=== PATIENT | male | born 1940 | race Caucasian/White ===

== ENCOUNTER → 2018-03-23 | Outpatient (CLI) | payer MEDICARE, OTHER | END | disposition home or self-care (01) | LOC: CVU 07:59 | PROVIDERS: ATTEND Internal Medicine Cardiovascular Disease | DX: I65.23 Occlusion and stenosis of bilateral carotid arteries (principal); I70.0 Atherosclerosis of aorta; I70.203 Unspecified atherosclerosis of native arteries of extremities, bilateral legs; I07.1 Rheumatic tricuspid insufficiency; I48.0 Paroxysmal atrial fibrillation; J44.9 Chronic obstructive pulmonary disease, unspecified; I25.10 Atherosclerotic heart disease of native coronary artery without angina pectoris; F17.210 Nicotine dependence, cigarettes, uncomplicated | CPT/HCPCS: 0399T; 93306; 93880; 93978 ==

== ENCOUNTER 2019-07-09 14:25 | Outpatient (CLI) | payer MEDICARE, OTHER ==
[2019-07-09] MEDS ORDERED: ASPI81TA45 PO (15:25)
[2019-07-09] MEDS ORDERED: ALBU8.5H8 INH (15:25)
[2019-07-09] MEDS ORDERED: CALC-534 PO (15:25)
[2019-07-09] MEDS ORDERED: TRIAMCINOLONE ACET TP (15:25)
[2019-07-09] MEDS ORDERED: OXYGEN NS (15:25)
[2019-07-09] MEDS ORDERED: FLUT1BLS3 IH (15:25)
[2019-07-09] MEDS ORDERED: PRAV40TA PO (15:25)
[2019-07-09] MEDS ORDERED: MULT-516 PO (15:25)
[2019-07-09] MEDS ORDERED: CLEAR LUNGS PO (15:25)
[2019-07-09 15:59] LABS: BASOPHILS # (AUTO) 0.03 x10^3/uL (0-0.1); BASOPHILS % (AUTO) 0 % (0-1); EOSINOPHILS # (AUTO) 0.13 x10^3/uL (0-0.4); EOSINOPHILS % (AUTO) 2 % (1-7); LYMPHOCYTES # (AUTO) 2.15 x10^3/uL (1-3.4); LYMPHOCYTES % (AUTO) 34 % (22-44); MD NO; MEAN CORPUSCULAR HEMOGLOBIN 32.5 pg (27.0-34.8); MEAN CORPUSCULAR HGB CONC 32.8 g/dL (32.4-35.8); MEAN CORPUSCULAR VOLUME 99.3 fL (80-100); MEAN PLATELET VOLUME 7.4 fL (7.4-10.4); MONOCYTES # (AUTO) 0.59 x10^3/uL (0.2-0.8); MONOCYTES % (AUTO) 9 % (2-9); NEUTROPHILS # (AUTO) 3.41 x10^3/uL (1.8-6.8); NEUTROPHILS % (AUTO) 54 % (42-75); PLATELET COUNT 222 x10^3/uL (130-400); RED BLOOD COUNT 4.54 x10^6/uL (3.82-5.3)
[2019-07-09 16:09] LABS: ALANINE AMINOTRANSFERASE 34 U/L (12-78); ALBUMIN 3.9 g/dL (3.4-5.0); ANION GAP 5 mmol/L (5-15); CALCIUM 9.2 mg/dL (8.5-10.1); CHLORIDE 101 mmol/L (98-107); CREATININE 0.85 mg/dL (0.55-1.02)
[2019-07-09 16:11] LABS: ALKALINE PHOSPHATASE 70 U/L (45-117); BILIRUBIN,TOTAL 0.5 mg/dL (0.2-1.0); TOTAL PROTEIN 7.4 g/dL (6.4-8.2)
[2019-07-14] MEDS ORDERED: TRAM50TA2 PO (14:58)
== END 2019-07-09 23:59 | disposition home or self-care (01) ==
LOC: STAR 14:25
PROVIDERS: ATTEND Specialist
DX: Z01.818 Encounter for other preprocedural examination (principal); C77.0 Secondary and unspecified malignant neoplasm of lymph nodes of head, face and neck; Z85.810 Personal history of malignant neoplasm of tongue; R94.31 Abnormal electrocardiogram [ECG] [EKG]
CPT/HCPCS: 36415; 80053; 85025; 93005

== ENCOUNTER 2019-09-09 08:12 | Outpatient (CLI) | payer MEDICARE, OTHER ==
[~2019-09-09 08:12] MED LIST: ACID1GRA3 PO; ALBU8.5H8 INH; ALBU90AE INH; AMOX1TAB12 PO; ASPI81TA45 PO; BUDE10.2 INH; CALC-534 PO; CLEAR LUNGS PO; DOXY100T PO; FLUT1BLS3 IH; LOPE2CAP PO; MULT-516 PO; OXYGEN NS; PRAV40TA PO; PRED10TA PO; TIOT18CA INH; TRAM50TA2 PO; TRIAMCINOLONE ACET TP
== END 2019-09-09 23:59 | disposition home or self-care (01) ==
LOC: ROC 08:12
PROVIDERS: ATTEND Radiology Radiation Oncology
DX: C77.0 Secondary and unspecified malignant neoplasm of lymph nodes of head, face and neck (principal); J44.9 Chronic obstructive pulmonary disease, unspecified; F17.210 Nicotine dependence, cigarettes, uncomplicated; Z95.5 Presence of coronary angioplasty implant and graft; Z79.82 Long term (current) use of aspirin; Z79.899 Other long term (current) drug therapy
CPT/HCPCS: G0463

== ENCOUNTER 2019-09-09 11:47 | Outpatient (CLI) | payer MEDICARE, OTHER ==
[2019-09-09 13:26] LABS: BASOPHILS # (AUTO) 0.02 x10^3/uL (0-0.1); BASOPHILS % (AUTO) 0 % (0-1); EOSINOPHILS # (AUTO) 0.14 x10^3/uL (0-0.4); EOSINOPHILS % (AUTO) 2 % (1-7); LYMPHOCYTES # (AUTO) 1.59 x10^3/uL (1-3.4); LYMPHOCYTES % (AUTO) 26 % (22-44); MD NO; MEAN CORPUSCULAR HEMOGLOBIN 32.6 pg (27.0-34.8); MEAN CORPUSCULAR HGB CONC 32.9 g/dL (32.4-35.8); MEAN CORPUSCULAR VOLUME 98.8 fL (80-100); MEAN PLATELET VOLUME 7.7 fL (7.4-10.4); MONOCYTES # (AUTO) 0.45 x10^3/uL (0.2-0.8); MONOCYTES % (AUTO) 7 % (2-9); NEUTROPHILS # (AUTO) 4.01 x10^3/uL (1.8-6.8); NEUTROPHILS % (AUTO) 65 % (42-75); PLATELET COUNT 216 x10^3/uL (130-400); RED BLOOD COUNT 4.28 x10^6/uL (3.82-5.3)
[2019-09-09 14:04] LABS: ALANINE AMINOTRANSFERASE 29 U/L (12-78); ALBUMIN 3.3 g/dL (3.4-5.0); ANION GAP 5 mmol/L (5-15); CALCIUM 8.9 mg/dL (8.5-10.1); CHLORIDE 102 mmol/L (98-107); CREATININE 0.94 mg/dL (0.55-1.02)
[2019-09-09 14:06] LABS: ALKALINE PHOSPHATASE 84 U/L (45-117); BILIRUBIN,TOTAL 0.7 mg/dL (0.2-1.0); TOTAL PROTEIN 7.3 g/dL (6.4-8.2)
== END 2019-09-09 23:59 | disposition home or self-care (01) ==
LOC: CFH 11:47
PROVIDERS: ATTEND Family Medicine
DX: C79.89 Secondary malignant neoplasm of other specified sites (principal); A41.9 Sepsis, unspecified organism; J15.9 Unspecified bacterial pneumonia
CPT/HCPCS: 36415; 80053; 85025

== ENCOUNTER 2021-02-28 11:30 | Day surgery (SDC) | payer MEDICARE, OTHER ==
[~2021-02-28] VITALS: Ht 160 cm; Wt 41.2 kg
[2021-02-28] MEDS ORDERED: CHLORHEXIDINE 15 ML UDC PO ONE (12:30)
[2021-02-28] MEDS ORDERED: LACTATED RINGERS 1,000 ML IV SCH (12:30)
[2021-02-28] MEDS ORDERED: DICL20GE TP (12:39)
[2021-02-28 12:40] VITALS: BP 121/73
[2021-02-28] MEDS ORDERED: LIDOCAINE/PF 1%-EPI 1:200K, 30 ML ONE (12:56)
[2021-02-28] MEDS ORDERED: NEOSPORIN OINT, 15GM ONE ×2 (12:56→13:20)
[2021-02-28] MEDS ORDERED: EPINEPHRINE 1 MG/ML, 1ML ONE (13:20)
[2021-02-28] MEDS ORDERED: LIDOCAINE/PF 1%, 30ML ONE (13:20)
[2021-02-28] MEDS ORDERED: FENTANYL PF 250 MCG/5ML ONE (13:22)
[2021-02-28] MEDS ORDERED: PROPOFOL 10 MG/ML, 20ML ONE (13:53)
[2021-02-28] MEDS ORDERED: ROCURONIUM 10 MG/ML,10ML ONE (13:53)
[2021-02-28] MEDS ORDERED: ONDANSETRON 2MG/ML, 2ML ONE (13:53)
[2021-02-28] MEDS ORDERED: NEOSTIGMINE 1 MG/ML, 10ML ONE (13:53)
[2021-02-28] MEDS ORDERED: GLYCOPYRROLATE 0.2MG/1ML, 5ML ONE (13:53)
[2021-02-28] MEDS ORDERED: DEXAMETHASONE 4 MG/ML, 1ML ONE (13:53)
[2021-02-28] MEDS ORDERED: PHENYLEPHRINE 10 MG/ML ONE (13:53)
[2021-02-28] MEDS ORDERED: FENTANYL PF 100 MCG/2ML IV PRN (14:00)
[2021-02-28] MEDS ORDERED: OXYcodone 5 MG/5 ML ORAL.SOL UDC PO PRN (14:00)
[2021-02-28] MEDS ORDERED: MEPERIDINE/PF 25MG/0.5ML IVPush PRN (14:00)
[2021-02-28] MEDS ORDERED: hydrALAzine 20 MG/ML, 1ML IV PRN (14:00)
[2021-02-28] MEDS ORDERED: HALOPERIDOL 5 MG/ML IV PRN (14:00)
[2021-02-28] MEDS ORDERED: HYDROmorphone 1 MG/ML, 1ML INJ IVPush PRN (14:00)
[2021-02-28] MEDS ORDERED: PROMETHAZINE 25 MG/ML, 1ML IVPush PRN (14:00)
[2021-02-28] MEDS ORDERED: ACETAMINOPHEN 325 MG TABLET PO PRN (14:00)
[2021-02-28] MEDS ORDERED: LABETALOL 5MG/ML, 20ML IV PRN (14:00)
[2021-02-28] MEDS ORDERED: morphine SULFATE 10 MG/ML, 1ML IVPush PRN (14:00)
== END 2021-02-28 16:40 | disposition home or self-care (01) ==
LOC: OUT 11:30
PROVIDERS: ATTEND Otolaryngology
DX: C04.8 Malignant neoplasm of overlapping sites of floor of mouth (principal); C02.9 Malignant neoplasm of tongue, unspecified; E78.5 Hyperlipidemia, unspecified; J44.9 Chronic obstructive pulmonary disease, unspecified; I25.10 Atherosclerotic heart disease of native coronary artery without angina pectoris; F17.210 Nicotine dependence, cigarettes, uncomplicated; Z72.89 Other problems related to lifestyle; Z79.899 Other long term (current) drug therapy; Z20.822 Contact with and (suspected) exposure to COVID-19; Z79.82 Long term (current) use of aspirin
CPT/HCPCS: 41112; 41116; 87635; 88305; 93005; J0171; J1100; J2370; J2405; J2704; J2710; J3010; J7120

== ENCOUNTER 2021-05-23 12:33 | Outpatient (CLI) | payer MEDICARE, OTHER ==
[~2021-05-23 12:33] MED LIST changes: +DICL20GE TP
[2021-05-23] MEDS ORDERED: LIDOCAINE 1%, 10ML ONE (12:47)
[2021-05-23 13:25] LABS: CREATININE 0.71 mg/dL (0.55-1.02)
[2021-05-23] MEDS ORDERED: OMNIPAQUE 350 MG/ML, 75ML BOTTLE ONE (15:38)
== END 2021-05-23 23:59 | disposition home or self-care (01) ==
LOC: RAD 12:33
PROVIDERS: ATTEND Otolaryngology
DX: R22.1 Localized swelling, mass and lump, neck (principal); C14.8 Malignant neoplasm of overlapping sites of lip, oral cavity and pharynx
CPT/HCPCS: 20206; 36415; 70491; 76942; 82565; 88112; 88305; Q9967; 10005